=== PATIENT | female | born 1945 | race Caucasian/White ===

== ENCOUNTER 2020-11-30 07:32 | Outpatient (CLI) | payer MEDICARE, SELFPAY ==
--- NOTE | ~2020-11-30 | US_ITS ---
EXAMINATION: US abdomen limited EXAM DATE: 11/30/2020 07:54 INDICATION: Elevated liver enzymes. TECHNIQUE: Multiple grayscale and Doppler images of the abdomen right upper quadrant were obtained (aaron y a technologist who performed the scan) and subsequently reviewed. There is no prior study for juventino levin. FINDINGS: The pancreatic head and body are normal in appearance. The pancreatic tail is not visualized. There is echogenic liver parenchyma, hepatic steatosis. There are no focal liver lesions identified. Th ere is no evidence of intrahepatic biliary duct dilation. Portal venous flow was seen in the hepatop edal, normal direction and has normal Doppler waveform. No right-sided hydronephrosis. Common bile duct measures 7 mm, which is normal for postcholecystectomy status. The gallbladder jessica a is unremarkable. IMPRESSION: 1. Hepatic steatosis. Reviewed, dictated and finalized at location D. IMPRESSION: 1. Hepatic steatosis.
== END 2020-11-30 07:33 | disposition home or self-care (01) ==
PROVIDERS: PCP Internal Medicine; Visit Provider Nurse Practitioner
DX: R74.8 Abnormal levels of other serum enzymes (principal); K76.0 Fatty (change of) liver, not elsewhere classified
CPT/HCPCS: 76705

== ENCOUNTER 2021-01-07 07:56 | Outpatient (CLI) | payer MEDICARE, SELFPAY ==
--- NOTE | ~2021-01-07 | DEXA_ITS ---
Bone Density Report Name: Stephanie Falcon Age: 75 Sex: Female Ethnicity: White Date of : 1945 Indication: postmenopausal; height loss; cancer; asthma or emphysema; hysterectomy; Referring Provider: Kelly Beaver Study: Bone densitometry was performed. Exam Date: January 07, 2021 Accession number: [id number] Bone Density: Region BMD T-score Z-score Classification AP Spine (L3, L4) 1.314 1.9 4.6 Normal Femoral Neck (Left) 0.670 -1.6 0.5 Osteopenia Total Hip (Left) 0.705 -1.9 -0.1 Osteopenia Total Hip Bilateral Avg 0.705 -1.9 -0.1 Osteopenia Femoral Neck (Right) 0.681 -1.5 0.6 Osteopenia Total Hip (Right) 0.705 -1.9 -0.1 Osteopenia World Health Organization criteria for BMD impression classify patients as: Normal (T-score at or above -1.0), Osteopenia (T-score between -1.0 and -2.5), or Osteoporosis (T-score at or below -2.5). 10-year Fracture Risk(1): Major Osteoporotic Fracture 12% Hip Fracture 4.3% Reported Risk Factors: [place] (), Neck BMD=0.670, BMI=22.6, smoking (1) FRAX(R) Version 3.08. Fracture probability calculated for an untreated patient. Fracture probability may be lower if the patient has received treatment. Clinical Information Provided by Patient: Smokes Has used the following medications: Vitamin D Has the following medical conditions: Asthma or Emphysema, Cancer, Hysterectomy Patient maximum height was 69 Menopause Age: 44 No regular weight bearing exercise Drinks caffeinated beverages Onset of menses at age 12 Number of children 4 Impression: The patient has low bone mass, based on the Left Total Hip T-score. The patient has an estimated ten-year risk of hip fracture of 4.3% and an estimated ten-year risk of major fracture of 12%, based on the WHO FRAX algorithm. The patient has risk factors, including: smoking. Discussion: BONE DENSITY IS LOW AT ONE OR MORE SKELETAL SITES. THE PATIENT'S BMD AND CLINICAL RISK FACTORS CONTRIBUTE TO THIS PATIENT'S INCREASED RISK OF FRACTURE. This patient's lowest T-score is low at one or more skeletal sites. It meets the World Health Organization's (WHO) criteria for ?low bone mass? (T-score between -1.0 and -2.5). The patient's 10-year risk of hip fracture as calculated by FRAX exceeds the threshold where pharmacological therapy is recommended by the National Osteoporosis Foundation (NOF). However, all treatment decisions require clinical judgment and consideration of individual patient factors, including patient preferences, comorbidities, previous drug use, risk factors not captured in the FRAX model (e.g., frailty, falls, vitamin D deficiency, increased bone turnover, interval significant decline in bone density) and possible under or overestimation of fracture risk by FRAX. The patient should follow a healthful lifestyle (goo
== END 2021-01-07 07:57 | disposition home or self-care (01) ==
PROVIDERS: PCP Internal Medicine; Visit Provider Nurse Practitioner
DX: Z78.0 Asymptomatic menopausal state (principal); M85.852 Other specified disorders of bone density and structure, left thigh; M85.851 Other specified disorders of bone density and structure, right thigh
CPT/HCPCS: 77080

== ENCOUNTER 2022-02-28 08:30 | Outpatient (RCR) | payer MEDICARE, SELFPAY ==
[2022-02-05 08:00] VITALS: BP_SYST 150
--- NOTE | 2022-02-05 08:56 | PTOPEVAL1 ---
Assessment and note entered by Marichuy Posadas, PT Evaluation Information Assessment Status Evaluation Diagnosis R shoulder pain; L knee pain Subjective Information chronic issues with R shoulder pain; had PT at another facility, little better with ability to do more before it hurts, but still hurts; am not doing any exercises for shoulder, but use it for everything, heavy lifting makes it catch and hurts more; was told she had a tear in shoulder; have not seen ortho dr; want to have less pain in shoulder and be able to use like normal; at other PT place--stim helped some, but once they started having me do more strengthening and wt- shoulder pain more; shoulder is really bothering her; stated 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 She wants to address the shoulder, stating L knee is arthritis and needs TKR. Shoulder pain is limiting her activity level with home tasks and playing with her grandchildren and sleeping tolerance. She has to stop and rest with tasks due to shoulder pain. Recently, she has had PT at another facility, which helped some but when they started strengthening, pain increased. And she had a co pay there for treatments. With the evaluation, she has decreased strength, with decreased ROM of shoulder, with painful arc of motion and spasms over mid bicep and mid deltoid; pain increases with resistance to shoulder flexion and ER motions; she is not doing any shoulder exercises at home, other than home tasks. Skilled PT services are indicated for modalities to decrease pain and spasms, therapeutic exercises to increase shoulder ROM and strength with education for home exercises and pain management. Plan of Care Interventions E
--- NOTE | 2022-02-13 09:59 | PCPTNOTE ---
Addendum entered by Zulema Cox, ADULT CAREGIVER 02/13/22 10:05: Patient showed up 16mins late for a 30 min appointment. So another therapist was available to treat her. Original Note: Patient did not show up for scheduled appointment this date. Called and had to leave a message.
--- NOTE | 2022-02-28 09:22 | PTOPDC ---
Assessment and note entered by Marichuy Posadas, PT Evaluation Information Assessment Status Discharge Diagnosis R shoulder pain; L knee pain Subjective Information Stephanie reports: moving and using arm more, still have pain; use L arm to vacuum; is able to do things even though shoulder hurts; L knee is doing OK, hurts when weather changes- not sure really need therapy on it, although it sometimes gives out; am able to walk and do stairs OK--it needs to be replaced, but waiting as long as can to have surgery; is doing her exercises at home and agrees to d/c therapy. Reported Pain Level Pain Score Self Report Additional Pain Score Comments pain range of 2-8/10 R shoulder, can feel it all the time; achey dull pain, sometimes sharp; increase pain with using arm more, lie on it; awaken 2x/night due to shoulder pain; decrease pain with rest, roll shoulder and change position, heat; take celebrex for general arthritis pain; Assessment PT Clinical Summary Stephanie has received 7 PT sessions. Her treatment was for R shoulder pain, and part of one session had education for L knee strengthening exercises. Compared to the initial eval for her shoulder: pain rating 3-6/10 increased to 2-8/10, but she reports doing almost everything but vacuuming with R arm; reported sleeping tolerance is the same; active shoulder ROM and strength have increased with flexion, abduction, IR and ER motions; She has been educated on HEP and posture. The goals were partially achieved. Discharge PT services and she is to continue with the exercises for her R shoulder and L knee. Plan of Care PT Services Indicated No
== END 2022-04-21 13:39 | disposition home or self-care (01) ==
LOC: ANHPT 08:30
PROVIDERS: PCP Internal Medicine; Visit Provider Internal Medicine
DX: M25.511 Pain in right shoulder (principal); M25.562 Pain in left knee
CPT/HCPCS: 97014; 97110; 97112; 97140; 97161; G0283

== ENCOUNTER 2023-08-06 10:04 | Outpatient (CLI) | payer MEDICARE, SELFPAY ==
--- NOTE | ~2023-08-06 | XR_ITS ---
Clinical Indication: Dyspnea PA and lateral views of the chest: Comparison: 11/13/2013 Findings: The lungs are clear, without evidence of focal consolidation or pleural effusion. Cardiome diastinal silhouette is within normal limits. Bones and soft tissues are unremarkable. Impression: No acute abnormality. Reviewed, dictated and finalized at location . Impression: No acute abnormality.
== END 2023-08-06 10:05 ==
PROVIDERS: PCP Family Medicine
DX: J45.40 Moderate persistent asthma, uncomplicated (principal)
CPT/HCPCS: 71046